=== PATIENT | female | born 1990 | race Caucasian/White ===

== ENCOUNTER 2025-02-15 17:34 | Emergency (ER) | payer OTHER ==
[~2025-02-15] VITALS: Ht 160 cm; Wt 77.1 kg
[2025-02-15 17:48] VITALS: BP 145/93
[2025-02-15] MEDS ORDERED: LORAZEPAM 1 MG TABLET ONE (18:07)
[2025-02-15] MEDS: LORAZEPAM 0.5 MG TABLET PO ONE (18:13)
[2025-02-15] MEDS ORDERED: ALPR2TAB7 PO ×2 (18:13→20:17)
[2025-02-15 18:32] VITALS: BP 145/93; O2SAT 97
== END 2025-02-15 18:32 | disposition home or self-care (01) ==
LOC: ER 17:34
DX: F41.0 Panic disorder [episodic paroxysmal anxiety] (principal); F32.A Depression, unspecified; F41.1 Generalized anxiety disorder
CPT/HCPCS: A4606; A4663

== ENCOUNTER 2025-03-06 20:50 | Emergency (ER) | payer OTHER ==
[~2025-03-06] VITALS: Ht 160 cm; Wt 77.1 kg
[~2025-03-06 20:50] MED LIST: ALPR2TAB7 PO
[2025-03-06 20:54] VITALS: BP 116/65
[2025-03-06] MEDS ORDERED: GABAPENTIN 300 MG CAPSULE ONE (21:15)
[2025-03-06] MEDS ORDERED: CLONAZEPAM 1 MG TABLET ONE (21:16)
[2025-03-06] MEDS: GABAPENTIN 400 MG CAPSULE PO ONE (21:18)
[2025-03-06] MEDS: CLONAZEPAM 0.5 MG TABLET PO ONE (21:18)
[2025-03-06] MEDS ORDERED: HYDR50TA62 PO (21:21)
[2025-03-06] MEDS ORDERED: QUET100T PO (21:21)
[2025-03-06] MEDS ORDERED: [UNRECOGNIZED DRUG - CODE] PO (21:21)
[2025-03-06] MEDS ORDERED: GABA600T PO (21:21)
[2025-03-06] MEDS ORDERED: MIRT-149 PO (21:26)
[2025-03-06 21:30] VITALS: BP 116/65; O2SAT 98
== END 2025-03-06 21:30 | disposition home or self-care (01) ==
LOC: ER 20:52
DX: F41.9 Anxiety disorder, unspecified (principal); F32.A Depression, unspecified; Z79.899 Other long term (current) drug therapy
CPT/HCPCS: A4606; A4663

== ENCOUNTER 2025-03-13 20:01 | Emergency (ER) | payer OTHER ==
[~2025-03-13] VITALS: Ht 160 cm; Wt 77.1 kg
[~2025-03-13 20:01] MED LIST changes: +GABA600T PO; +HYDR50TA62 PO; +MIRT-149 PO; +QUET100T PO; +[UNRECOGNIZED DRUG - CODE] PO
[2025-03-13 20:02] VITALS: BP 123/72
[2025-03-13] MEDS ORDERED: CLONAZEPAM 1 MG TABLET ONE (20:26)
[2025-03-13] MEDS: CLONAZEPAM 0.5 MG TABLET PO ONE (20:29)
[2025-03-13 20:41] VITALS: BP 123/72; O2SAT 98
== END 2025-03-13 20:42 | disposition home or self-care (01) ==
LOC: ER 20:01
DX: F41.0 Panic disorder [episodic paroxysmal anxiety] (principal); F32.A Depression, unspecified; F41.1 Generalized anxiety disorder; Z79.899 Other long term (current) drug therapy
CPT/HCPCS: A4606; A4663